=== PATIENT | female | born 1970 | race Caucasian/White ===

== ENCOUNTER 2018-11-05 19:07 | Emergency (ER) | payer OTHER, SELFPAY ==
[2018-11-05 19:21] VITALS: BP 137/85; PULSE 83; RESP 18; TEMP 36.5; O2SAT 100; BMI 29.5
--- NOTE | 2018-11-05 21:09 | ED.EYEPROB ---
HPI - Eye Problem <JORGE Jackson - Last Filed: 11/05/18 21:23> General Chief complaint: Eye Problems Stated complaint: sudden sharp pain right eye, now its bleeding Time Seen by Provider: 11/05/18 20:01 Source: patient Limitations: no limitations History of Present Illness HPI Narrative: 48-year-old healthy female, presents emergency department complaining of redness in her right eye. Family states she has knees and all of a sudden felt a very slight pressure in her right eye and her family noticed that there appeared to be blood around her eye a few hours ago. She denies any vision changes, pain interval healing movements, severe eye pain, history of eye problems, or severe headaches. She does states she later developed a 2/10 dull aching headache and states that she has been sneezing a lot recently. She states she does not think she has any seasonal allergies but she is unsure. Patient denies chest pain, fevers, shortness of breath, sore throat, nasal congestion, abdominal pain, nausea, vomiting, change in behavior, confusion, weakness, facial droop, calf pain, or difficulty speaking. She states that she has recently been put on a new control pill 4 days ago and has been feeling more fatigued. Related Data Allergies Allergy/AdvReac Type Severity Reaction Status Date / Time SULFA (sulfonamide) Allergy Unknown Uncoded 06/10/17 13:10 Review of Systems <JORGE Jackson - Last Filed: 11/05/18 21:23> Review of Systems Narrative: REVIEW OF SYSTEMS: GENERAL: Denies fever or chills. HENT: No head trauma, hearing loss or sore throat. EYES: Complains of red eye, see HPI. No loss of vision, double vision, or trauma. CARDIOVASCULAR: No chest pain or syncope. RESPIRATORY: No shortness of breath or cough. GASTROINTESTINAL: No nausea, vomiting, diarrhea, or constipation. GENITOURINARY: No flank pain or dysuria. MUSCULOSKELETAL: No pain, weakness, or deformities. INTEGUMENTARY: No rash, lesions, or pruritus. NEURO: No numbness, tingling, memory loss, or confusion. PSYCH: No behavior or mood changes. PFSH <JORGE Jackson - Last Filed: 11/05/18 21:23> Medical History No significant medical problems (Acute) Social History Smoking Status: Never smoker Social History Smoking Status: Never smoker Exam <JORGE Jackson - Last Filed: 11/05/18 21:23> Initial Vital Signs Initial Vital Signs: Vital Signs Temperature 97.7 F 11/05/18 19:21 Pulse Rate 83 11/05/18 19:21 Respiratory Rate 18 11/05/18 19:21 Blood Pressure 137/85 11/05/18 19:21 Pulse Oximetry 100 11/05/18 19:21 PHYSICAL EXAMINATION: GENERAL: Well groomed, alert, and cooperative. Answers questions promptly and appropriately. Vital signs noted. HENT: Normocephalic, atraumatic. No scalp tenderness. Hearing intact. Slight erythema noted to the back of oropharynx, postnasal drip noted on exam. Face features symmetrical. EYES: Medial subconjunctival hemorrhage noted to the right eye, emergent extends slightly below lower eyelid. Remaining sclera is white without inflammation. Conjunctiva pink. PERRLA, EOMIs without pain, no periorbital swelling or bruising. No discharge. Peripheral and central vision remains intact bilaterally. RESPIRATORY: Normal respiratory rate, trachea midline, airway patent. No stridor, nasal flaring or accessory muscle use. MUSCULOSKELETAL: Normal gait and coordination. Equal tone and mass bilaterally. SKIN: Warm, dry, soft, appropriate color for ethnicity. NEURO: Alert and Oriented X 3. Good coordination. CN III-XIII nerves grossly intact. PSYCH: Appropriate affect and mood. <Mikhail Montiel DO - Last Filed: 11/06/18 06:06> Initial Vital Signs Initial Vital Signs: Vital Signs Temperature 97.7 F 11/05/18 19:21 Pulse Rate 83 11/05/18 19:21 Respiratory Rate 18 11/05/18 19:21 Blood Pressure 137/85 11/05/18 19:21 Pulse Oximetry 100 11/05/18 19:21 Course <JORGE Jackson - Last Filed: 11/05/18 21:23> Vital Signs Vital signs: Vital Signs - 8 hr 11/05/18 19:21 Temperature 97.7 F Pulse Rate 83 Respiratory Rate 18 Blood Pressure 137/85 Pulse Oximetry 100 <Mikhail Montiel DO - Last Filed: 11/06/18 06:06> Vital Signs Vital signs: Vital Signs - 8 hr 11/05/18 19:21 Temperature 97.7 F Pulse Rate 83 Respiratory Rate 18 Blood Pressure 137/85 Pulse Oximetry 100 [facility] - Eye Problem <MARLIN JacksonP - Last Filed: 11/05/18 21:23> Medical Records Attestation: I reviewed the patient's medical records. Lab Data Attestation: I reviewed the patient's lab results. [facility] Narrative Medical decision making narrative: Differential includes subconjunctival hemorrhage (most likely due to reports a sneeze, sudden onset, EOMI without pain, no vision a, hemorrhage noted on exam), acute angle glaucoma (less likely due to lack of severe pain, EMOIs without pain, no change in vision, no injury, very little risk factors), cranial bleed (less likely due to lack of trauma, lack of change of mentation status, very low risk factors), and retinal detachment (less likely due to lack of vision changes or disturbances, PERRLA), infection (less likely due to lack of inflammation, conjunctiva pink without irritation). Strict return precautions given and follow-up instructions discussed. Discharge Plan Departure Patient Disposition: Home Clinical Impression: Subconjunctival hemorrhage Qualifiers: Laterality: right Qualified Code(s): H11.31 - Conjunctival hemorrhage, right eye Discharge Date/Time: 11/05/18 20:30 Instructions: DI for Subconjunctival Hemorrhage Activity Restrictions/Additional Instructions: Thank you for entrusting me with your care today. As discussed, redness in her eye is caused by a burst blood vessel, this is commonly caused by sneezing or vomiting. While in may look concerning, this is benign and will heal on its own. I do recommend you follow up with an eye doctor in the next week or so for further evaluation. Return to the emergency department if he develops vision changes, loss of vision, blurry vision, extreme headaches, dizziness, syncope, chest pain, shortness of breath. Referrals: Karl Mcmanus MD [Primary Care Provider] - <Mikhail Montiel DO - Last Filed: 11/06/18 06:06> Sign Out Provider Sign Out Attestation: I was immediately available in the department for consultation. Documentation has been reviewed. I agree with assessment and plan.
== END 2018-11-05 20:30 | disposition home or self-care (01) ==
PROVIDERS: Emergency Provider Nurse Practitioner; Family Provider Internal Medicine; PCP Internal Medicine
DX: H11.31 Conjunctival hemorrhage, right eye (principal)
CPT/HCPCS: 99282; 99283